=== PATIENT | male | born 1960 | race Caucasian/White ===

== ENCOUNTER 2017-05-02 07:55 | Outpatient (CLI) | payer BC ==
[2017-05-02] MEDS ORDERED: Gadobenate Dimeglumine 529 MG/1 ML (20ML VIAL) ONE (11:39)
== END 2017-05-02 07:56 | disposition home or self-care (01) ==
LOC: BICMRI 07:55
PROVIDERS: ATTEND Specialist
DX: R43.0 Anosmia (principal)
CPT/HCPCS: 70553; A9579